=== PATIENT | female | born 1980 | race Caucasian/White ===

== ENCOUNTER 2017-09-09 14:01 | Emergency (ER) | payer OTHER ==
[~2017-09-09] VITALS: Ht 175.3 cm; Wt 180.1 kg
[~2017-09-09 14:01] MED LIST: GLIP1TAB85 PO; LEVO200T PO; LEVO25TA PO; LORA-339 PO; QUET5TAB PO; SERT1TAB68 PO; WARF5TAB90 PO; WARF7.5T PO
[2017-09-09 14:03] VITALS: TEMP 36.7; Ht 175.3 cm; Wt 180.1 kg
[2017-09-09] MEDS ORDERED: BUPRTAB51 PO (14:20)
[2017-09-09] MEDS ORDERED: LEVO100T7 PO (14:20)
[2017-09-09] MEDS ORDERED: TOPI100T20 PO (14:20)
[2017-09-09] MEDS ORDERED: CEFD300C2 PO (14:26)
--- NOTE | 2017-09-09 14:38 | EMERGENCY ROOM VISIT NOTE ---
History First contact with patient: 14:11 Chief Complaint: EAR PAIN Stated Complaint: EAR INFECTION SINCE JUNE, TREATED TWICE History of Present Illness The patient is a 37 year old female who presents to the Emergency Room with complaints of a recurrent right ear infection. The patient reports that she initially developed difficulty hearing in the right ear. She was seen by her PCP, and was told that she had an ear infection. She was treated with antibiotic eardrops. This seemed to improve her symptoms until one month later when she started to develop significant sinus congestion and right ear pain. She was then treated with Augmentin antibiotics. She again went through a period of improvement before her pain started to worsen again. She now complains of pain for the past 5 days. She denies any recurrent sinus congestion. She now reports the pain is also going into the throat. She rates her discomfort a 7 out of 10. She was unable to contact her family doctor's office, and came to the emergency department for further evaluation. Review of Systems 10 system review was performed and was negative except for pertinent positives and negatives as indicated in history of present illness Past Medical/Surgical History Medical Problems: (1) Asthma (2) Asthma, Unspecified (3) Diabetes (4) Dyspnea (5) Hypothyroidism Nos (6) Sprain of knee (7) Sprain of knee (8) Swelling (9) Swelling (10) Thyroid function test abnormal Surgical Problems: (1) H/O dilation and curettage (2) Hx of tonsillectomy Family History Diabetes mellitus Social History Smoking Status: Current Every Day Smoker Alcohol Use: none Drug Use: none Marital Status: single Housing Status: lives with family Occupation Status: unemployed Current/Historical Medications Scheduled Bupropion (Wellbutrin-Xl), 300 MG PO DAILY Cefdinir (Omnicef), 300 MG PO Q12H Glipizide Xl (Glucotrol Xl), 10 MG PO BID Levothyroxine Sodium (Synthroid), 400 MCG PO QPM Levothyroxine Sodium (Levothyroxine Sodium), 100 MCG PO DAILY Quetiapine Fumarate (Seroquel), 100 MG PO QPM Sertraline Hcl (Zoloft), 150 MG PO DAILY Topiramate (Topamax), 100 MG PO BID Physical Exam Vital Signs Date Time Temp Pulse Resp B/P (MAP) Pulse Ox O2 Delivery O2 Flow Rate FiO2 2/13/18 14:03 36.7 96 21 133/83 97 Room Air Physical Exam CONSTITUTIONAL: Healthy and well nourished. Alert and oriented X 3 with positive affect. HEENT: Normocephalic, atraumatic. Pupils equal, round and reactive. No facial edema noted. Examination of the left ear shows a bulging TM without erythema, air-fluid levels or effusion. Examination of the right ear shows notable TM scarring and overriding erythema. Light reflex is absent. Bony that are surveilled a visible. No TM perforation or external auditory canal erythema/edema. NECK: Full active range of motion without discomfort. RESPIRATORY: Clear to auscultation bilaterally with no wheezing, crackles, rhonchi or stridor. INTEGUMENTARY: No rash or other significant dermatologic conditions noted. NEUROLOGIC: No focal neurologic deficits noted. Medical Decision & Procedures ED Course Patient history and physical exam were performed. Nurse's notes were reviewed. Vital signs were reviewed and were normal. Examination is consistent with a recurrent otitis media. The patient will be treated with Omnicef 300 mg twice a day 10 days. The patient was encouraged to alternate ibuprofen and Tylenol as needed for pain. I did encourage her to have her family doctor refer her to ENT for further reevaluation and management of her recurrent otitis media. The patient was happy with plan of care, voiced understanding of all discharge instructions, and rated her overall discomfort a 6 out of 10 at the time of discharge. She refused any analgesics while in the emergency department. Medical Decision Medication Reconcilliation Current Medication List: was personally reviewed by ms Blood Pressure Screening Patient's blood pressure: Normal blood pressure Impression Primary Impression: Recurrent otitis media of right ear Departure Information Dispostion Home / Self-Care Prescriptions Cefdinir (OMNICEF) 300 Mg Cap 300 MG PO Q12H for 10 Days, #20 CAP Prov: Hakeem Lord PA 09/09/17 Referrals No Doctor, Assigned Forms HOME CARE DOCUMENTATION FORM, IMPORTANT VISIT INFORMATION Patient Instructions My [facility] Additional Instructions Take Omnicef as prescribed. Ibuprofen 800 mg and/or Tylenol 1000 mg every 8 hours. You may also alternate these medications for more effective pain relief: Ibuprofen --4 HRS--> Tylenol --4 HRS--> ibuprofen --4 HRS--> Tylenol .... Have your family doctor refer you to an ENT physician for further reevaluation.
[2017-09-09 14:40] VITALS: BP 125/70; PULSE 82; O2SAT 98
== END 2017-09-09 14:41 | disposition home or self-care (01) ==
LOC: C.EDB 14:03 → C.EDD 14:41
DX: H66.91 Otitis media, unspecified, right ear (principal); J45.909 Unspecified asthma, uncomplicated; E11.9 Type 2 diabetes mellitus without complications; E03.9 Hypothyroidism, unspecified; Z83.3 Family history of diabetes mellitus; F17.210 Nicotine dependence, cigarettes, uncomplicated; Z79.899 Other long term (current) drug therapy

== ENCOUNTER 2021-10-15 22:26 | Observation (INO) ==
[2021-10-15] MEDS ORDERED: SODIUM CHLORIDE 0.9% 1000ML 1,000 ML IV STA (23:17)
[2021-10-15] MEDS ORDERED: DROPERIDOL 5 MG/2 ML VIAL IV STA (23:17)
[2021-10-15] MEDS ORDERED: FAMOTIDINE 20MG IV PUSH 20 MG/5 ML SYR IV STA (23:17)
--- NOTE | 2021-10-15 23:25 | Emergency Department Note ---
History of Present Illness General Chief complaint: Vomiting Stated complaint: vomiting, Time Seen by Provider: 10/15/21 23:02 History of Present Illness Maximum Pain Intensity: 10 This 41-year-old presents to the ER complaining of nausea vomiting and upper abdominal pain Location: Upper abdomen Quality: Nauseated Severity: Moderate Duration: Today Timing: Today Context: Patient was concerned and came in Modifying factors: better with nothing; worse with activity Patient has had her gallbladder removed. No history pancreatitis. No alcohol use. She has a medical marijuana card. No history of similar symptoms in the past. Patient denies chest pain, dyspnea, fevers, flulike illness. Home Medications Medication Instructions Recorded Confirmed Type aripiprazole 2 mg tablet 2 mg PO DAILY 10/15/21 10/15/21 History duloxetine 60 mg capsule,delayed 60 mg PO BID 10/15/21 10/15/21 History release hydroxyzine pamoate 25 mg capsule 25 - 50 mg PO HS PRN 10/15/21 10/15/21 History (Vistaril) ibuprofen 200 mg tablet 400 mg PO DIRECTED PRN 10/15/21 10/15/21 History insulin lispro 100 unit/mL 0 unit CONTINUOUS SUBCUTANEOUS 10/15/21 10/15/21 History subcutaneous solution INFUSION CONTINOUS MDD 130 UNITS/24 HOURS levothyroxine 175 mcg tablet 175 mcg PO DAILY 10/15/21 10/15/21 History levothyroxine 200 mcg tablet 200 mcg PO DAILY 10/15/21 10/15/21 History lorazepam 0.5 mg tablet 0.5 mg PO TID PRN 10/15/21 10/15/21 History lovastatin 10 mg tablet 10 mg PO HS 10/15/21 10/15/21 History metformin 500 mg tablet,extended 1,000 mg PO BID 10/15/21 10/15/21 History release 24 hr pantoprazole 20 mg tablet,delayed 20 mg PO TID 10/15/21 10/15/21 History release (Protonix) Allergies Allergy/AdvReac Type Severity Reaction Status Date / Time citalopram Allergy Intermediate HIVES Verified 10/15/21 22:53 Past Med/Surg History Medical History (Updated 10/16/21 @ 02:56 by Margie Mackenzie DO) Diabetes History of DVT (deep vein thrombosis) CASTILLO (nonalcoholic steatohepatitis) Surgical History Hx of cholecystectomy Social History Smoking Status: Current every day smoker Tobacco Type: Cigarettes Preferred Language: Danish Feels Safe at Home: Yes Review of Systems A total of 10 systems reviewed and were otherwise negative Physical Exam Vital Signs Vital Signs - 24 hr 10/15/21 22:28 10/15/21 23:27 10/16/21 01:26 Temperature 35.9 C L 37 C Temperature Source Temporal Artery Scan Oral Pulse Rate 101 H 82 Pulse Rate [Finger] 81 Respiratory Rate 20 22 22 Respiratory Effort / Characteristics Non-Labored Spontaneous Respiratory Depth Normal Blood Pressure 172/83 H Blood Pressure [Right Arm] 172/89 H Blood Pressure Mean 112 Blood Pressure Mean [Right Arm] 116 Blood Pressure Position Sitting Pulse Oximetry 96 98 96 Oxygen Delivery Method Room Air Room Air Room Air Sepsis Recent Fever Within 48 Hours No Sepsis New/Unexplained Change in Mental Status No Sepsis Action Taken by Nursing No Action Required 10/16/21 02:58 Temperature 38 C H Temperature Source Oral Pulse Rate Pulse Rate [Finger] 82 Respiratory Rate 18 Respiratory Effort / Characteristics Respiratory Depth Blood Pressure Blood Pressure [Right Arm] Blood Pressure Mean Blood Pressure Mean [Right Arm] Blood Pressure Position Pulse Oximetry 95 Oxygen Delivery Method Room Air Sepsis Recent Fever Within 48 Hours Sepsis New/Unexplained Change in Mental Status Sepsis Action Taken by Nursing VITALS: Vitals are noted on the nurse's note and reviewed by myself. Vital sig ns reviewed. GENERAL: White female dry heaving in front of me, in no acute distress, nondiaphoretic, well-developed well-nourished. SKIN: The skin was without rashes, erythema, edema, or bruising. There is no tenting of the skin. Capillary reflex less than 2 seconds. HEAD: Normocephalic atraumatic. EARS: External auditory canals clear, EYES: Pupils equal round and reactive to light and accommodation. Conjunctivae without injection, sclerae without icterus. Extraocular movements intact. NOSE: Patent, turbinates without inflammation or discharge. MOUTH: Mucous membranes moist. Pharynx without erythema or exudate. Uvula midline. Airway patent. Tongue does not deviate. NECK: Supple without nuchal rigidity. No lymphadenopathy. No thyromegaly. Cervical spine is nontender. No JVD. HEART: Regular rate and rhythm LUNGS: Clear to auscultation bilaterally without wheezes, rales or rhonchi. No retractions or accessory muscle use. ABDOMEN: Positive bowel sounds x 4. Normal tympanic percussion. Soft, tender to palpation upper abdomen, without masses or organomegaly. Eid sign negative. No guarding or rebound tenderness. No CVA tenderness MUSCULOSKELETAL: No muscle atrophy, erythema, or edema noted. NEURO: Patient was alert and oriented to person place and time. Normal sensation to light and sharp touch. No focal neurological deficits. Course Administered Medications Discontinued Medications Droperidol (Droperidol 5 Mg/2 Ml Vial) 1.25 mg IV ONE STA Stop: 10/15/21 23:18 Last Admin: 10/15/21 23:34 Dose: 1.25 mg Documented by: [id number] Sodium Chloride (Nss 1000ml) 1,000 mls @ 999 mls/hr IV .Q1H1M STA Stop: 10/16/21 00:17 Last Infusion: 10/16/21 01:27 Dose: 0 mls/hr Documented by: [id number] Admin: 10/15/21 23:35 Dose: 999 mls/hr Documented by: [id number] Famotidine (Pepcid 20mg Iv Push) 20 mg in 5 mls @ 2.5 mls/min IV NOW STA Stop: 10/15/21 23:18 Last Admin: 10/15/21 23:35 Dose: 2.5 mls/min Documented by: [id number] Sodium Chloride (Nss 1000ml) 1,000 mls @ 999 mls/hr IV .Q1H1M ONE Stop: 10/16/21 01:02 Last Infusion: 10/16/21 02:37 Dose: 0 mls/hr Documented by: [id number] Admin: 10/16/21 01:21 Dose: 999 mls/hr Documented by: [id number] Ioversol (Optiray 320 125ml) 125 ml IV ONCE ONE Stop: 10/16/21 01:00 Last Admin: 10/16/21 01:00 Dose: 118 ml Documented by: [id number] Morphine Sulfate (Morphine Sulfate 4 Mg/Ml 1 Ml Carp\Vial) 4 mg IV NOW STA Stop: 10/16/21 01:16 Last Admin: 10/16/21 01:21 Dose: 4 mg Documented by: [id number] Medical Decision Making Medical Records Attestation: I reviewed the patient's medical records. Home Medications Current Medication List: was personally reviewed by me Laboratory Data Attestation: I reviewed the patient's lab results. Result diagrams: 10/15/21 23:29 10/16/21 01:08 Lab Results 10/15/21 10/15/21 10/15/21 Range/Units 23:29 23:29 23:29 WBC 11.77 H (4.8-10.8) K/uL RBC 5.44 H (4.2-5.4) M/uL Hgb 16.2 H (12.0-16.0) g/dL Hct 47.1 H (37-47) % MCV 86.6 (80-100) fL MCH 29.8 (25-34) pg MCHC 34.4 (32-36) g/dL RDW Std Deviation 48.2 H (36.4-46.3) fL RDW Coeff of Gabby 15.1 H (11.5-14.5) % Plt Count 125 L (130-400) K/uL MPV 11.2 H (7.4-10.4) fL Immature Gran % (Auto) 0.7 % Neut % (Auto) 86.8 % Lymph % (Auto) 9.0 % [place] % (Auto) 3.4 % Eos % (Auto) 0.0 % Baso % (Auto) 0.1 % Neut # (Auto) 10.22 H (1.4-6.5) K/uL Lymph # (Auto) 1.06 L (1.2-3.4) K/uL [place] # (Auto) 0.40 (0.11-0.59) K/uL Eos # (Auto) 0.00 (0-0.5) K/uL Baso # (Auto) 0.01 (0-0.2) K/uL Immature Gran # (Auto) 0.08 H (0.00-0.02) K/uL Sodium 134 L (136-145) mmol/L Potassium TNP Chloride 101 (98-107) mmol/L Carbon Dioxide 21 (21-32) mmol/L Anion Gap 12 H (3-11) BUN 20 (6-23) mg/dl Creatinine 0.59 L (0.6-1.2) mg/dl Est Cr Clr Drug Dosing Not Reportable Est GFR ( Amer) 132.9 ml/min Est GFR (Non-Af Amer) 114.6 ml/min BUN/Creatinine Ratio 33.9 H (10-20) Glucose 313 H* (70-99(Fasting)) mg/dl Calcium 9.2 (8.5-10.1) mg/dl Total Bilirubin 0.7 (0.2-1.0) mg/dl AST TNP ALT 18 (7-52) U/L Alkaline Phosphatase 168 H (34-104) U/L Troponin I < 0.03 (0-0.04) ng/ml Total Protein 8.1 (6.0-8.3) gm/dl Albumin 4.2 (3.4-5.0) gm/dl Globulin 3.9 (2.5-4.0) gm/dl Albumin/Globulin Ratio 1.1 (0.9-2) Lipase 40 (11-82) U/L HCG, Qual Negative (Negative) Urine Color Urine Appearance (Clear) Urine pH (4.5-7.5) Ur Specific [place] (1.000-1.030) Urine Protein (Negative) Urine Glucose (UA) (Negative) Urine Ketones (Negative) Urine Blood (Negative) Urine Nitrite (Negative) Urine Bilirubin (Negative) Urine Urobilinogen (Negative) Ur Leukocyte Esterase (Negative) Urine WBC (Auto) (0-5) /hpf Urine RBC (Auto) (0-4) /hpf U Hyaline Cast (Auto) (0-5) /lpf U Epithel Cells (Auto) (0-5) /lpf Urine Bacteria (Auto) (Negative) 10/16/21 10/16/21 Range/Units 01:08 01:29 WBC (4.8-10.8) K/uL RBC (4.2-5.4) M/uL Hgb (12.0-16.0) g/dL Hct (37-47) % MCV (80-100) fL MCH (25-34) pg MCHC (32-36) g/dL RDW Std Deviation (36.4-46.3) fL RDW Coeff of Gabby (11.5-14.5) % Plt Count (130-400) K/uL MPV (7.4-10.4) fL Immature Gran % (Auto) % Neut % (Auto) % Lymph % (Auto) % [place] % (Auto) % Eos % (Auto) % Baso % (Auto) % Neut # (Auto) (1.4-6.5) K/uL Lymph # (Auto) (1.2-3.4) K/uL [place] # (Auto) (0.11-0.59) K/uL Eos # (Auto) (0-0.5) K/uL Baso # (Auto) (0-0.2) K/uL Immature Gran # (Auto) (0.00-0.02) K/uL Sodium (136-145) mmol/L Potassium 4.1 Chloride (98-107) mmol/L Carbon Dioxide (21-32) mmol/L Anion Gap (3-11) BUN (6-23) mg/dl Creatinine (0.6-1.2) mg/dl Est Cr Clr Drug Dosing Est GFR ( Amer) ml/min Est GFR (Non-Af Amer) ml/min BUN/Creatinine Ratio (10-20) Glucose (70-99(Fasting)) mg/dl Calcium (8.5-10.1) mg/dl Total Bilirubin (0.2-1.0) mg/dl AST 16 ALT (7-52) U/L Alkaline Phosphatase (34-104) U/L Troponin I (0-0.04) ng/ml Total Protein (6.0-8.3) gm/dl Albumin (3.4-5.0) gm/dl Globulin (2.5-4.0) gm/dl Albumin/Globulin Ratio (0.9-2) Lipase (11-82) U/L HCG, Qual (Negative) Urine Color Yellow Urine Appearance Clear (Clear) Urine pH 6.0 (4.5-7.5) Ur Specific [place] > 1.045 H (1.000-1.030) Urine Protein 1+ H (Negative) Urine Glucose (UA) 3+ H (Negative) Urine Ketones 3+ H (Negative) Urine Blood Negative (Negative) Urine Nitrite Negative (Negative) Urine Bilirubin Negative (Negative) Urine Urobilinogen Negative (Negative) Ur Leukocyte Esterase Negative (Negative) Urine WBC (Auto) 1-5 (0-5) /hpf Urine RBC (Auto) 0-4 (0-4) /hpf U Hyaline Cast (Auto) 1-5 (0-5) /lpf U Epithel Cells (Auto) >30 H (0-5) /lpf Urine Bacteria (Auto) 1+ H (Negative) Imaging Data Attestation: I personally reviewed and interpreted this imaging study as follows: MDM Narrative Prior records/ancillary studies reviewed. Triage Nursing notes reviewed. Additional history obtained from the family. The patient's history was concerning for nausea, vomiting, and abdominal pain. Differential diagnosis: Etiologies such as gastroenteritis, food borne illness, infections, appendicitis, diverticulitis, inflammatory bowel disease, obstruction, GI bleed, biliary pathology, as well as others were entertained. Physical examination findings: As above. Abdominal examination revealed tender upper abdomen. Vital signs reviewed and revealed mildly tachycardic. ER treatment provided: IV hydration 1 L NSS. Droperidol, Pepcid On reassessment the patient felt better. Patient was tolerating p.o. intake. Diagnostics interpretation by me: EKG ordered for upper abdominal pain EKG: Normal sinus, sinus arrhythmia, no acute ST-T wave changes, rate of 80. Impression normal sinus rhythm interpreted by myself I think arrhythmia is unlikely. EKG shows normal sinus rhythm with no interval abnormalities such as QT prolongation or WPW. There are no findings to suggest Brugada syndrome. Cardiac monitoring in the emergency department reveals no tachycardic or bradycardic dysrhythmia. Hypertrophic cardiomyopathy was considered but there are no clear historical elements pointing toward this. EKG is not suggestive. The QRS voltage is not extremely large and there are no suggestive Q waves. The labs revealed mild leukocytosis Negative urine, negative hCG Hyperglycemia Imaging studies: [facility] Patient: SHIRLEY MEDINA (Female) : 82 Status: ER Date: 10/16/21 01:02 Room #: History: PAIN ACROSS UPPER ABD, PT STATES SHE HAS HAD GALLBLADDER REMOVED ABOUT 7 YRS AGO Slices: [id number] Priors: Tech: SandraRell osborn @ [phone] Exams: CT ABDOMEN & PELVIS With Contrast Contrast: IV Amt: 118 ML OPTIRAY 320 Accession Numbers: [id number] Referring Physician: REFERRED SELF Preliminary Findings Only See Final Report For Complete Findings CT ABDOMEN & PELVIS With Contrast: No free fluid or free air. No small bowel obstruction. No radiopaque kidney stone or hydronephrosis. Mildly nodular contour of the liver could reflect early cirrhosis. Mild splenomegaly. Nonspecific mildly enlarged lymph nodes in the portacaval region, celiac region, and retroperitoneum. 1.8 cm left adrenal gland nodule, likely an adenoma. Radiologist: Jose Angel Westfall MD Consultation: A consultation was placed with the hospitalist. The case was discussed and diagnostics were reviewed. The patient was evaluated in the ER for further treatment. This appears to be consistent with nausea and vomiting with dehydration and abdominal pain with poorly controlled diabetes. patient still felt quite nauseated. medicine was consulted. She will be evaluated for admission. By the evaluation outlined above emergent etiologies such as appendicitis, diverticulitis, obstruction, cardiac sources, mesenteric ischemia, aortic pathology, inflammatory bowel disease, renal colic, PUD, biliary pathology, UTI, as well as others were deemed relatively unlikely. The pt informed about the findings as listed above. All questions were answered and pleased with the treatment. The chart was completed utilizing [employer] Speech voice recognition software. Grammatical errors, random word insertions, pronoun errors, and incomplete sentences are an occassional consequence of this system due to software limitations, ambient noise, and hardware issues. Any formal questions or concerns about the content, text, or information contained within the body of this dictation should be directly addressed to the physician physician's assistant for clarification. Impression & Plan Nausea & vomiting, Acute dehydration, Abdominal pain in female patient, Diabetes mellitus with hyperglycemia Discharge Plan Visit Data Chief Complaint: Vomiting Stated Complaint: vomiting, ED Provider: Lisa Tinajero ED Midlevel Provider: Kayla Barragan Discharge Problem: Nausea & vomiting, Acute dehydration, Abdominal pain in female patient, Diabetes mellitus with hyperglycemia Patient Disposition: Admitted As Inpatient Condition: Good Forms Stand Alone Forms: My [employer] Prescriptions Prescriptions: No Action levothyroxine 175 mcg tablet 175 mcg PO DAILY RF: 0 lovastatin 10 mg tablet 10 mg PO HS RF: 0 pantoprazole [Protonix] 20 mg tablet,delayed release (DR/EC) 20 mg PO TID RF: 0 lorazepam 0.5 mg tablet 0.5 mg PO TID PRN (Reason: Anxiety) RF: 0 ibuprofen 200 mg Tablet 400 mg PO DIRECTED PRN (Reason: PAIN/FEVER) RF: 0 levothyroxine 200 mcg tablet 200 mcg PO DAILY RF: 0 insulin lispro 100 unit/mL solution 0 unit continuous subcutaneous infusion CONTINOUS MDD 130 UNITS/24 HOURS RF: 0 metformin 500 mg tablet extended release 24 hr 1,000 mg PO BID RF: 0 hydroxyzine pamoate [Vistaril] 25 mg capsule 25 - 50 mg PO HS PRN (Reason: Sleep) RF: 0 duloxetine 60 mg capsule,delayed release(DR/EC) 60 mg PO BID RF: 0 aripiprazole 2 mg tablet 2 mg PO DAILY RF: 0 Referrals Referrals: Nathen Stewart [Primary Care Provider] - Discharge Problem: Nausea & vomiting Qualifiers: Vomiting type: unspecified Qualified Code(s): R11.2 - Nausea with vomiting, unspecified
[2021-10-15 23:37] LABS: Basophils # (auto) 0.01 K/uL (0-0.2); Basophils % (auto) 0.1 %; Hematocrit (blood only) 47.1 % (37-47); Hemoglobin 16.2 g/dL (12.0-16.0); Immature Granulocytes # (auto) 0.08 K/uL (0.00-0.02); Immature Granulocytes % (auto) 0.7 %; Lymphocytes # (auto) 1.06 K/uL (1.2-3.4); Mean Corpuscular Hemoglobin 29.8 pg (25-34); Mean Corpuscular Hgb Conc 34.4 g/dL (32-36); Mean Corpuscular Volume 86.6 fL (80-100); Mean Platelet Volume 11.2 fL (7.4-10.4); Monocytes % (auto) 3.4 %; Neutrophils # (auto) 10.22 K/uL (1.4-6.5); Neutrophils % (auto) 86.8 %; Platelet Count 125 K/uL (130-400); RDW Coefficient of Variation 15.1 % (11.5-14.5); RDW Standard Deviation 48.2 fL (36.4-46.3); Red Blood Count 5.44 M/uL (4.2-5.4); White Blood Count 11.77 K/uL (4.8-10.8)
[2021-10-15 23:52] LABS: Pregnancy Test, Serum Negative (Negative)
[2021-10-16] LABS: Alanine Aminotransferase 18 U/L (7-52); Albumin Globulin Ratio 1.1 (0.9-2); Albumin Level 4.2 gm/dl (3.4-5.0); Alkaline Phosphatase 168 U/L (34-104); Anion Gap 12 (3-11); BUN Creatinine Ratio 33.9 (10-20); Bilirubin,Total 0.7 mg/dl (0.2-1.0); Blood Urea Nitrogen 20 mg/dl (6-23); Calcium 9.2 mg/dl (8.5-10.1); Carbon Dioxide 21 mmol/L (21-32); Chloride 101 mmol/L (98-107); Est GFR (African American) 132.9 ml/min; Est GFR (Non-African American) 114.6 ml/min; Globulin 3.9 gm/dl (2.5-4.0); Glucose 313 mg/dl (70-99(Fasting)); Lipase 40 U/L (11-82); Sodium 134 mmol/L (136-145); Total Protein 8.1 gm/dl (6.0-8.3); Troponin I < 0.03 ng/ml (0-0.04)
[2021-10-16] MEDS ORDERED: SODIUM CHLORIDE 0.9% 1000ML 1,000 ML IV ONE (00:02)
[2021-10-16] MEDS ORDERED: OPTIRAY 320 125ml IV ONE (00:59)
[2021-10-16] MEDS ORDERED: MoRPHine SULFATE 4 MG/ML 1 ML CARP\\VIAL IV STA (01:15)
[2021-10-16] MEDS ORDERED: GI COCKTAIL ED USE PO ONE (01:27)
[2021-10-16 01:38] LABS: Potassium 4.1 mmol/L (3.5-5.1)
[2021-10-16 01:39] LABS: Appearance Urine Clear (Clear); Bacteria Urine Automated 1+ (Negative); Bilirubin Urine Negative (Negative); Blood Urine Negative (Negative); Color Urine Yellow; Epithelial Cell Urine Auto >30 /lpf (0-5); Glucose Urine UA 3+ (Negative); Ketones Urine 3+ (Negative); Leukocyte Esterase Urine Negative (Negative); Nitrite Urine Negative (Negative); Protein Urine 1+ (Negative); RBC Urine Automated 0-4 /hpf (0-4); Specific Gravity Urine > 1.045 (1.000-1.030); Urobilinogen Urine Negative (Negative)
--- NOTE | 2021-10-16 02:48 | History & Physical Report ---
Date of Service October 16, 2021 Assessment & Plan (1) Nausea & vomiting: Plan: 41yo female presenting wtih 2 days of persistent nausea, vomiting, po intolerance. Patient unable to tolerate PO, unable to take pills. Ddx to include gastroparesis, cannabis hyperemesis, gastroenterities, GERD -Observation to medical -Pepcid TID -Reglan qAC and qHS -Small sips as tolerated - clear liquids (2) CASTILLO (nonalcoholic steatohepatitis): Plan: Compensated (3) Adrenal nodule: Plan: Adrenal incidentaloma. Unilateral, 1.8cm. Obesity and DM. Benign in appearance -Repeat imaging in 1 year to demonstrate stability (4) Lymphadenopathy: Plan: Noted on imaging, mild, does not appear pathological -Consider repeat imaging as outpatient (5) History of DVT (deep vein thrombosis): Plan: Noted. History of Present Illness Chief Complaint: nausea, vomiting, abdominal pain Primary Care Provider: Nathen Fernández is a 41yo female with history of DM, CASTILLO with cirrhosis presenting with two days of nausea, vomiting, abdominal pain and PO intolerance. Patient states that she develops severe nausea immediately following oral intake followed by vomiting 5-10 minutes later. She has anterior abdominal pain mostly in epigastric and LUQ region. She has tried taking hot showers, small sips of liquid to no avail. She has been unable to keep down her medications or tolerate even small sips of water without vomiting. She denies fever, chills, diarrhea or constipation. She has had severe nausea in the past that lasted almost a month before resolving on its own. She has an appointment with GI on 11/15/21 for a gastric emptying study for workup for possible gastroparesis. ER Course: Maalox, Droperidone, Pepcid, Morphine, NSS Allergies Allergy/AdvReac Type Severity Reaction Status Date / Time citalopram Allergy Intermediate HIVES Verified 10/15/21 22:53 Home Medications Medication Instructions Recorded Confirmed Type aripiprazole 2 mg tablet 2 mg PO DAILY 10/15/21 10/15/21 History duloxetine 60 mg capsule,delayed 60 mg PO BID 10/15/21 10/15/21 History release hydroxyzine pamoate 25 mg capsule 25 - 50 mg PO HS PRN 10/15/21 10/15/21 History (Vistaril) ibuprofen 200 mg tablet 400 mg PO DIRECTED PRN 10/15/21 10/15/21 History insulin lispro 100 unit/mL 0 unit CONTINUOUS SUBCUTANEOUS 10/15/21 10/15/21 History subcutaneous solution INFUSION CONTINOUS MDD 130 UNITS/24 HOURS levothyroxine 175 mcg tablet 175 mcg PO DAILY 10/15/21 10/15/21 History levothyroxine 200 mcg tablet 200 mcg PO DAILY 10/15/21 10/15/21 History lorazepam 0.5 mg tablet 0.5 mg PO TID PRN 10/15/21 10/15/21 History lovastatin 10 mg tablet 10 mg PO HS 10/15/21 10/15/21 History metformin 500 mg tablet,extended 1,000 mg PO BID 10/15/21 10/15/21 History release 24 hr pantoprazole 20 mg tablet,delayed 20 mg PO TID 10/15/21 10/15/21 History release (Protonix) Past Med/Surg History Medical History (Updated 10/16/21 @ 02:56 by Margie Mackenzie, DO) Diabetes History of DVT (deep vein thrombosis) CASTILLO (nonalcoholic steatohepatitis) Surgical History Hx of cholecystectomy Social History Smoking Status: Current every day smoker Tobacco Type: Cigarettes Preferred Language: Thai Feels Safe at Home: Yes Review of Systems Review of Systems: All systems reviewed & are unremarkable except as noted in HPI & below Physical Exam Physical Exam: General: patient resting comfortably, NAD, non-toxic in appearance, AA&O x 4 Skin: warm, dry, intact, no rashes or lesions HEENT: NC/AT, PERRL, EOMI, anicteric sclera, conjunctiva without injection, external ear normal to inspection and nontender, nares patent, moist mucus membranes, dentition intact, no oropharyngeal lesions, neck supple, trachea midline, no LAD, no thyromegaly, no JVD Heart: +S1/S2, regular, no m/r/g Lungs: equal air entry bilaterally, no rales/rhonchi/wheezes Abd: +BS, soft, tender in epigastric region without rebound or guarding, tender in LUQ Ext: warm, 2+ pulses in UE/LE bilaterally, no clubbing/cyanosis or edema Neuro: nonfocal, patient AA&O x 4, speech intact, no facial droop, moving all extremities on command with equal strength 5/5 Results & Data Results & Data ([facility]) Vital Signs (Past 12 Hours) Vital Signs Temp Pulse Pulse Resp BP BP Pulse Ox 10/16/21 01:26 37 C 81 22 172/89 H 96 10/15/21 23:27 82 22 98 10/15/21 22:28 35.9 C L 101 H 20 172/83 H 96 Laboratory Results Laboratory Results WBC 11.77 K/uL (4.8-10.8) H 10/15/21 23:29 RBC 5.44 M/uL (4.2-5.4) H 10/15/21 23:29 Hgb 16.2 g/dL (12.0-16.0) H 10/15/21 23:29 Hct 47.1 % (37-47) H 10/15/21 23: MCV 86.6 fL (80-100) 10/15/21 23: MCH 29.8 pg (25-34) 10/15/21 23: MCHC 34.4 g/dL (32-36) 10/15/21 23:29 RDW Std Deviation 48.2 fL (36.4-46.3) H 10/15/21 23:29 RDW Coeff of Gabby 15.1 % (11.5-14.5) H 10/15/21 23:29 Plt Count 125 K/uL (130-400) L 10/15/21 23:29 MPV 11.2 fL (7.4-10.4) H 10/15/21 23:29 Immature Gran % (Auto) 0.7 % 10/15/21 23: Neut % (Auto) 86.8 % 10/15/21 23: Lymph % (Auto) 9.0 % 10/15/21 23: Jones % (Auto) 3.4 % 10/15/21 23: Eos % (Auto) 0.0 % 10/15/21 23: Baso % (Auto) 0.1 % 10/15/21 23: Neut # (Auto) 10.22 K/uL (1.4-6.5) H 10/15/21 23:29 Lymph # (Auto) 1.06 K/uL (1.2-3.4) L 10/15/21 23:29 Jones # (Auto) 0.40 K/uL (0.11-0.59) 10/15/21 23: Eos # (Auto) 0.00 K/uL (0-0.5) 10/15/21 23: Baso # (Auto) 0.01 K/uL (0-0.2) 10/15/21 23: Immature Gran # (Auto) 0.08 K/uL (0.00-0.02) H 10/15/21 23:29 Sodium 134 mmol/L (136-145) L 10/15/21 23: Potassium 4.1 mmol/L (3.5-5.1) 10/16/21 01:08 Chloride 101 mmol/L (98-107) 10/15/21: Carbon Dioxide 21 mmol/L (21-32) 10/15/21 23: Anion Gap 12 (3-11) H 10/15/21 23: BUN 20 mg/dl (6-23) 10/15/21 23: Creatinine 0.59 mg/dl (0.6-1.2) L 10/15/21 23: Est Cr Clr Drug Dosing Not Reportable 10/15/21 23: Est GFR ( Amer) 132.9 ml/min 10/15/21: Est GFR (Non-Af Amer) 114.6 ml/min 10/15/21 23: BUN/Creatinine Ratio 33.9 (10-20) H 10/15/21 23: Glucose 313 mg/dl (70-99(Fasting)) H* 10/15/21 23: Calcium 9.2 mg/dl (8.5-10.1) 10/15/21 23: Total Bilirubin 0.7 mg/dl (0.2-1.0) 10/15/21 23: AST 16 U/L (13-39) 10/16/21 01:08 ALT 18 U/L (7-52) 10/15/21 23: Alkaline Phosphatase 168 U/L (34-104) H 10/15/21 23: Troponin I < 0.03 ng/ml (0-0.04) 10/15/21 23: Total Protein 8.1 gm/dl (6.0-8.3) 10/15/21 23: Albumin 4.2 gm/dl (3.4-5.0) 10/15/21 23: Globulin 3.9 gm/dl (2.5-4.0) 10/15/21 23: Albumin/Globulin Ratio 1.1 (0.9-2) 10/15/21 23: Lipase 40 U/L (11-82) 10/15/21 23: HCG, Qual Negative (Negative) 10/15/21 23: Urine Color Yellow 10/16/21 01: Urine Appearance Clear (Clear) 10/16/21: Urine pH 6.0 (4.5-7.5) 10/16/21 01: Ur Specific Monon > 1.045 (1.000-1.030) H 10/16/21 01: Urine Protein 1+ (Negative) H 10/16/21 01: Urine Glucose (UA) 3+ (Negative) H 10/16/21 01: Urine Ketones 3+ (Negative) H 10/16/21 01: Urine Blood Negative (Negative) 10/16/21 01: Urine Nitrite Negative (Negative) 10/16/21 01: Urine Bilirubin Negative (Negative) 10/16/21 01: Urine Urobilinogen Negative (Negative) 10/16/21 01:29 Ur Leukocyte Esterase Negative (Negative) 10/16/21 01:29 Urine WBC (Auto) 1-5 /hpf (0-5) 10/16/21 01:29 Urine RBC (Auto) 0-4 /hpf (0-4) 10/16/21 01: U Hyaline Cast (Auto) 1-5 /lpf (0-5) 10/16/21 01: U Epithel Cells (Auto) >30 /lpf (0-5) H 10/16/21 01:29 Urine Bacteria (Auto) 1+ (Negative) H 10/16/21 01:[address] Abdomen - Per STAT rad - no free fluid or free air. No small bowel obstruction. No radiopaque kidney stone or hydronephrosis. Mildly nodular contour of the liver could reflect early cirrhosis. Mild splenomegaly. Nonspecific mildly enlarged lymph nodes in the portacaval region, celiac region and retroperitoneum. 1.8cm left adrenal gland nodule, likely an adenoma. Code Status & VTE Plan VTE Prophylaxis Plan VTE Prophylaxis will be ordered: No PG Care Time/CCT Total # of Minutes Spent Total Time Spent with Patient: Total time spent is greater than 50% in coordination of care (as documented) at patient's floor/unit and/or counseling patient: Coding Level of Care Code INT OBSERVATION CARE 70M LVL 3 Diagnoses History of DVT (deep vein thrombosis) Z86.718 CASTILLO (nonalcoholic steatohepatitis) K75.81 Nausea & vomiting R11.2 Vomiting type: unspecified Adrenal nodule E27.8 Lymphadenopathy R59.1 (1) Nausea & vomiting Vomiting type: unspecified Qualified Code(s): R11.2 - Nausea with vomiting, unspecified
[2021-10-16] MEDS ORDERED: ACETAMINOPHEN 1,000 MG/100 ML VIAL IV STA (03:02)
[2021-10-16] MEDS ORDERED: GLUCOSE 40% GEL 15 GM TUBE PO PRN (04:23)
[2021-10-16] MEDS ORDERED: LORazepam 0.5 MG TAB PO PRN (04:23)
[2021-10-16] MEDS ORDERED: LACTATED RINGER'S 1,000 ML IV SCH (04:23)
[2021-10-16] MEDS ORDERED: GLUCAGON FOR INJ 1 MG VIAL SQ PRN (04:23)
[2021-10-16] MEDS ORDERED: CARBOHYDRATES FOR HYPOGLYCEMIA PO PRN (04:23)
[2021-10-16] MEDS ORDERED: DEXTROSE 50% 50 ML SYRINGE IV PRN (04:23)
[2021-10-16] MEDS ORDERED: hydrOXYzine HCl 25 MG TAB PO PRN (04:23)
[2021-10-16] MEDS ORDERED: GLUCOSE 10 TABS/TUBE PO PRN (04:23)
[2021-10-16] MEDS ORDERED: INSULIN HUMAN LISPRO (humaLOG) 100 UNITS/ML VIAL SC PRN (04:45)
[2021-10-16] MEDS: LEVOTHYROXINE SODIUM 175 MCG TABLET PO SCH (06:12)
[2021-10-16] MEDS: LEVOTHYROXINE SODIUM 200 MCG TABLET PO SCH (06:12)
[2021-10-16 06:47] LABS: Magnesium 1.9 mg/dl (1.7-2.4); Phosphorus 2.6 mg/dl (2.5-4.9)
[2021-10-16] MEDS ORDERED: METOCLOPRAMIDE HCL 5 MG TABLET PO SCH (07:30)
[2021-10-16] MEDS: FAMOTIDINE 20 MG in SYRINGE 3 ML IV SCH ×2 (07:51→20:22)
--- NOTE | 2021-10-16 08:06 | CT Scan Report ---
CT SCAN OF THE ABDOMEN AND PELVIS WITH IV CONTRAST CLINICAL HISTORY: Upper abdominal pain. COMPARISON STUDY: Chest CT dated 04/18/2014. TECHNIQUE: Following the IV administration of 118 cc of Optiray 320, CT scan of the abdomen and pelv is is performed from the lung bases to the proximal femora. Images are reviewed in the axial, sagitta l, and coronal planes. IV contrast was administered without complication. A dose lowering technique w as utilized adhering to the principles of ALARA. The examination is degraded by large body habitus, a nd by streak artifact from the body wall abutting the CT gantry. CT DOSE: 2261.05 mGy.cm FINDINGS: Lung bases: The heart is normal in size and without pericardial effusion. The lung bases are clear. T here is a small hiatal hernia. Liver: The contrast-enhanced liver is enlarged, measuring 27.1 cm in length. The liver is cirrhotic i n morphology, with nodularity of the hepatic surface contour hepatic attenuation is diffusely diminis hed indicating superimposed steatosis. There is no intrahepatic biliary ductal dilatation. The hepat ic veins and portal veins are patent. Gallbladder: Surgically absent noting clips in the gallbladder fossa. Spleen: The spleen is markedly enlarged measuring 19.7 cm in length. Pancreas: Mildly atrophic and grossly unremarkable. Adrenal glands: Nodularity of the left adrenal gland is similar to [address] This likely represe nt adenomas but cannot be definitively characterized due to the presence of IV contrast. The right ad renal gland is normal in appearance. Kidneys: The contrast enhanced kidneys are normal in size and without hydronephrosis. The kidneys enh ance symmetrically. Abdominal vasculature: The abdominal aorta is normal in course and caliber. Bowel: There is no bowel obstruction. The appendix is not visualized. Peritoneum: There is no intraperitoneal free air or abdominal ascites. Lymphadenopathy: There are mildly enlarged retroperitoneal and iliac chain lymph nodes which measure up to 12 mm in short axis. Mildly enlarged upper abdominal nodes are likely related to chronic liver disease. Pelvic viscera: The bladder, uterus, and adnexa are normal as visualized. Ovarian follicles are noted . There is trace free fluid in the cul-de-sac. Skeletal structures: No lytic or blastic lesions are seen. IMPRESSION: 1. There are no acute infectious or inflammatory findings in the abdomen or pelvis. 2. The liver is enlarged, steatotic, and cirrhotic in morphology. 3. Marked splenomegaly. 4. Mildly enlarged retroperitoneal and iliac chain lymph nodes are nonspecific and may be reactive. 5. Trace free fluid in cul-de-sac is nonspecific and likely within physiologic limits. 6. Additional findings as above. ACT 112: Negative or not required by law. Electronically signed by: Kenn Diez M.D. 10/16/2021 8:03 AM
[2021-10-16] MEDS ORDERED: PHARMACY GLYCEMIC MGMT CONSULT PRN (08:14)
[2021-10-16] MEDS ORDERED: INSULIN ASPART 100 UNITS/ML 3 ML PEN SC SCH (09:00)
[2021-10-16] MEDS ORDERED: METOCLOPRAMIDE HCL INJ 5 MG/ML 2 ML VIAL IV SCH (09:00)
[2021-10-16] MEDS ORDERED: INSULIN GLARGINE SOLOSTAR 100 UNITS/ML 3 ML PEN SC ONE (09:00)
[2021-10-16] MEDS: DULoxetine HCL 60 MG CAP PO SCH ×2 (09:11→20:22)
[2021-10-16] MEDS: ARIPIprazole 1 MG/ML ORAL SOLN 150 ML BTL PO SCH (09:11)
[2021-10-16] MEDS: INSULIN ASPART PER UNIT SC SCH ×4 (09:15→21:15)
[2021-10-16 09:36] LABS: iSTAT Arterial Blood Gas pH 7.42 (7.35-7.45); iSTAT Hematocrit 47 % (37-47); iSTAT Potassium 4.3 mmol/L (3.3-5.0); iSTAT Sodium 135 mmol/L (135-144)
[2021-10-16 09:37] LABS: iSTAT Arterial Blood Gas HCO3 22 meg/L (19-24); iSTAT Arterial Blood Gas pCO2 35 mmHg (35-46); iSTAT Arterial Blood Gas pO2 66 mmHg (80-95); iSTAT Carbon Dioxide 23 mmol/L (24-31)
--- NOTE | 2021-10-16 10:49 | Electrocardiogram Report ---
Test Reason : Blood Pressure : / mmHG Vent. Rate : 080 BPM Atrial Rate : 094 BPM P-R Int : 130 ms QRS Dur : 088 ms QT Int : 414 ms P-R-T Axes : 055 034 063 degrees QTc Int : 477 ms Wandering atrial pacemaker Otherwise normal ECG When compared with ECG of 24-AUG-2014 11:33, No significant change was found Confirmed by Taj Zuleta ([id number]) on 10/16/2021 10:49:20 AM Referred By: REFERRED SELF Confirmed By:Harvinder Zuleta
--- NOTE | 2021-10-16 13:57 | Discharge Summary ---
Date of Service October 17, 2021 Admission HPI Per Admitting Provider Ade Fernández is a 41yo female with history of DM, CASTILLO with cirrhosis presenting with two days of nausea, vomiting, abdominal pain and PO intolerance. Patient states that she develops severe nausea immediately following oral intake followed by vomiting 5-10 minutes later. She has anterior abdominal pain mostly in epigastric and LUQ region. She has tried taking hot showers, small sips of liquid to no avail. She has been unable to keep down her medications or tolerate even small sips of water without vomiting. She denies fever, chills, diarrhea or constipation. She has had severe nausea in the past that lasted almost a month before resolving on its own. She has an appointment with GI on 11/15/21 for a gastric emptying study for workup for possible gastroparesis. ER Course: Maalox, Droperidone, Pepcid, Morphine, NSS Principal Diagnosis Intractable nausea/vomiting--possibly related to cannabis use v. gastroparesis Discharge Exam GENERAL: 41 yo morbidly obese WF. Pleasant, cooperative, NAD. LUNGS: Clear to auscultation bilaterally. No accessory muscle use. No W/R/R. CARDIOVASCULAR: Regular rate and rhythm. No M/G/R. No JVD. ABDOMEN: Soft, non-tender and non-distended. BS normal x 4 quad. EXTREMITIES: No edema. Non-tender. Peripheral pulses +2/4. NEUROLOGIC: A&O x3. PSYCHIATRIC: Cooperative. Appropriate mood and affect. SKIN: Warm, dry, intact. No rashes or lesions. Discharge Data Allergies Allergy/AdvReac Type Severity Reaction Status Date / Time citalopram Allergy Intermediate HIVES Verified 10/15/21 22:53 Consultations 10/16/21 01:51 ED Decision to Admit Stat Ordered Studies Abdomen/Pelvis CT 10/15/21 23:17 CT SCAN OF THE ABDOMEN AND PELVIS WITH IV CONTRAST CLINICAL HISTORY: Upper abdominal pain. COMPARISON STUDY: Chest CT dated 04/18/2014. TECHNIQUE: Following the IV administration of 118 cc of Optiray 320, CT scan of the abdomen and pelvis is performed from the lung bases to the proximal femora. Images are reviewed in the axial, sagittal, and coronal planes. IV contrast was administered without complication. A dose lowering technique was utilized adhering to the principles of ALARA. The examination is degraded by large body habitus, and by streak artifact from the body wall abutting the CT gantry. CT DOSE: 2261.05 mGy.cm FINDINGS: Lung bases: The heart is normal in size and without pericardial effusion. The lung bases are clear. There is a small hiatal hernia. Liver: The contrast-enhanced liver is enlarged, measuring 27.1 cm in length. The liver is cirrhotic in morphology, with nodularity of the hepatic surface contour hepatic attenuation is diffusely diminished indicating superimposed steatosis. There is no intrahepatic biliary ductal dilatation. The hepatic veins and portal veins are patent. Gallbladder: Surgically absent noting clips in the gallbladder fossa. Spleen: The spleen is markedly enlarged measuring 19.7 cm in length. Pancreas: Mildly atrophic and grossly unremarkable. Adrenal glands: Nodularity of the left adrenal gland is similar to [address] This likely represent adenomas but cannot be definitively characterized due to the presence of IV contrast. The right adrenal gland is normal in appearance. Kidneys: The contrast enhanced kidneys are normal in size and without hydronephrosis. The kidneys enhance symmetrically. Abdominal vasculature: The abdominal aorta is normal in course and caliber. Bowel: There is no bowel obstruction. The appendix is not visualized. Peritoneum: There is no intraperitoneal free air or abdominal ascites. Lymphadenopathy: There are mildly enlarged retroperitoneal and iliac chain lymph nodes which measure up to 12 mm in short axis. Mildly enlarged upper abdominal nodes are likely related to chronic liver disease. Pelvic viscera: The bladder, uterus, and adnexa are normal as visualized. Ovarian follicles are noted. There is trace free fluid in the cul-de-sac. Skeletal structures: No lytic or blastic lesions are seen. IMPRESSION: 1. There are no acute infectious or inflammatory findings in the abdomen or pelvis. 2. The liver is enlarged, steatotic, and cirrhotic in morphology. 3. Marked splenomegaly. 4. Mildly enlarged retroperitoneal and iliac chain lymph nodes are nonspecific and may be reactive. 5. Trace free fluid in cul-de-sac is nonspecific and likely within physiologic limits. 6. Additional findings as above. ACT 112: Negative or not required by law. Electronically signed by: Kenn Diez M.D. 10/16/2021 8:03 AM Hospital Course (1) Nausea & vomitinyo female presenting wtih 2 days of persistent nausea, vomiting, po intolerance. Patient unable to tolerate PO, unable to take pills. Ddx to include gastroparesis, cannabis hyperemesis, gastroenteritis, GERD -Placed in observation to med/surg -Pepcid TID ordered in addition to Reglan qAC and qHS -Small sips as tolerated - clear liquids (diabetic) -Would advance back to regular diabetic diet as tolerated -This morning, pt vomited prior to PO Reglan and it was requested to be changed to IV which was done but pt has not needed it -Was able to tolerate clear liquids for lunch -Highly suspicious that her symptoms are related to cannabis, recommend that she stops using -She has an upcoming appt for [facility] next month to r/o gastroparesis -IV Reglan didn't seem to be providing much benefit, was medicated with a dose of IV Compazine 10mg x1 yesterday afternoon and reported marked improvement in symptoms -Has requested rx for Compazine, told she will have discontinue Phenergan and can use Compazine in place of that -Diet advanced this AM to ADA regular/solid and she tolerated eating small amount -Will plan for d/c to home today with 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 Unilateral, 1.8cm. Obesity and DM. Benign in appearance -Repeat imaging in 1 year to demonstrate stability (5) Lymphadenopathy: Noted on imaging, mild, does not appear pathological -Consider repeat imaging as outpatient (6) History of DVT (deep vein thrombosis): -Noted. Not on any chronic anticoagulation and no s/sx concerning for acute DVT (7) Thrombocytopenia: -Drop in platelets noted from 125 to 90 this morning -Was started on Pepcid which she does not take at home which can cause this, has been d/c'd -Also pt with CASTILLO, so could be a contributing factor, other than yesterday no previous labs to compare trend -Would recommend pcp follow up At this time, pt is medically and hemodynamically stable for discharge home. Advise pcp follow up within 1 week of discharge. Also recommend keeping all upcoming scheduled appointments and tests. Other than changing her Phenergan to Compazine, no changes to be made to her outpatient medication regimen. Above plan of care has been d/w Dr. Noriega who is in agreement with the aforementioned. Total Time Total Time Spent Total Time Spent (In Minutes): <30 minutes Discharge Plan Discharge Items Patient Disposition: Home - Self-Care Reason For Visit: INTRACTABLE NAUSEA Discharge Diagnosis: nausea, likely due to cannibis use Condition on Discharge: Good Activity: Resume your previous activity Non-emergency contact: Primary Care Provider Call non-emergency contact if: you have any medication questions and your symptoms worsen Follow-up/Referrals: Nathen Stewart [Primary Care Provider] - Diet: Carb Consistent or DM2 Addtl Attending Provider Instructions: Take all medications as directed on medication reconciliation. I would recommend stopping the marijuana/cannabis as it very likely could be contributing to your nausea and vomiting. Keep all upcoming scheduled appointments and tests with your primary care doctors and specialists. Would recommend that you follow up with your family healthcare provider within 1 week of discharge. You have requested a prescription for Compazine which has been sent to your pharmacy. You will need to STOP taking the Phenergan--do NOT combine these two medications. Take as directed. If you feel that you are having trouble tolerating oral intake, this medication does come in a suppository form and could be called into your pharmacy. You will need to contact your PCP for a new script if needed. Pending Studies at Discharge: No Stand-Alone Forms: [facility], Smoking Cessation Medications and DC Order Prescriptions: New prochlorperazine maleate [Compazine] 10 mg tablet 10 mg PO Q8H PRN (Reason: nausea and vomiting) Qty: 20 RF: 0 Continued levothyroxine 175 mcg tablet 175 mcg PO DAILY RF: 0 lovastatin 10 mg tablet 10 mg PO HS RF: 0 pantoprazole [Protonix] 20 mg tablet,delayed release (DR/EC) 20 mg PO TID RF: 0 lorazepam 0.5 mg tablet 0.5 mg PO TID PRN (Reason: Anxiety) RF: 0 ibuprofen 200 mg Tablet 400 mg PO DIRECTED PRN (Reason: PAIN/FEVER) RF: 0 levothyroxine 200 mcg tablet 200 mcg PO DAILY RF: 0 insulin lispro 100 unit/mL solution 0 unit continuous subcutaneous infusion CONTINOUS MDD 130 UNITS/24 HOURS RF: 0 metformin 500 mg tablet extended release 24 hr 1,000 mg PO BID RF: 0 hydroxyzine pamoate [Vistaril] 25 mg capsule 25 - 50 mg PO HS PRN (Reason: Sleep) RF: 0 duloxetine 60 mg capsule,delayed release(DR/EC) 60 mg PO BID RF: 0 aripiprazole 2 mg tablet 2 mg PO DAILY RF: 0 Discharge Orders: Discharge Order (Routine); Ordered 10/17/21 Ordered By: Anila Santos/Other Patient Handouts: Gastroparesis, Managing Type 2 Diabetes Admission Data Admit Date/Time: 10/16/21 02:44 Attending Provider: Ulisses Noriega Admit Provider: Margie Mackenzie Primary Care Provider: Nathen Stewart Other Providers: Margie Mackenzie Coding Level of Care Code 06002 OBS Care - Discharge Diagnoses Nausea & vomiting R11.2 Vomiting type: unspecified CASTILLO (nonalcoholic steatohepatitis) K75.81 Adrenal nodule E27.8 Lymphadenopathy R59.1 History of DVT (deep vein thrombosis) Z86.718 Diabetes mellitus with hyperglycemia E11.65 Thrombocytopenia D69.6
--- NOTE | 2021-10-16 15:17 | Pharmacy Report ---
Pharmacy Glycemic Short Note 2 - Date of Service October 16, 2021 - Glycemic Short BSG Results (Last 24 hours): 10/15/21 10/16/21 10/16/21 23:29 08:17 12:03 Glucose 313 H* POC Glucose 250 H 247 H OUTPATIENT ANTIDIABETIC REGIMEN: * Humalog insulin pump: MDD 130 units * Metformin ER 1000 mg BID ASSESSMENT: * 41 y/o F admitted for intractable nausea. Patient with history of Type 2 diabetes managed at home on Humalog pump and Metformin. * Nurse called to say this morning that patient did not have her own insulin pump with her. * Therefore transitioned patient to basal and bolus insulin regimens. * Fasting BSG today was 250 mg/dl. * Based on patient's home insulin pump MDD of 130 units, basal insulin 30 units ordered this AM. PM Lantus dose scale (20-40 units) ordered based on BSG. * Novolog parameters based on wt and stress of 2. PLAN FOR INPATIENT GLYCEMIC CONTROL: * Hold outpatient oral diabetes medications * Basal insulin * Lantus 30 units SQ QAM; 20-40 units scale based on BSG at HS * Bolus insulin * NovoLog per scale ACHS or Q6hrs while NPO * Goal Range: Low 110 mg/dL - High 140 mg/dL * Correction Factor: 15 mg/dL/unit * Nutritional / Prandial insulin per carb ratio of 1 unit per 5 grams CHO consumed
[2021-10-16] MEDS ORDERED: PROCHLORPERAZINE 10 MG in SYRINGE 8 ML IV ONE (15:18)
--- NOTE | 2021-10-16 15:28 | Hospitalist Progress Note ---
Date of Service October 16, 2021 Assessment & Plan (1) Nausea & vomiting: Plan: 41yo female presenting wtih 2 days of persistent nausea, vomiting, po intolerance. Patient unable to tolerate PO, unable to take pills. Ddx to include gastroparesis, cannabis hyperemesis, gastroenteritis, GERD -Placed in observation to med/surg -Pepcid TID ordered in addition to Reglan qAC and qHS -Small sips as tolerated - clear liquids (diabetic) -Would advance back to regular diabetic diet as tolerated -This morning, pt vomited prior to PO Reglan and it was requested to be changed to IV which was done -Was able to tolerate clear liquids for lunch -Highly suspicious that her symptoms are related to Cannibis, recommend that she stops using it -Shortly after lunch, she began feeling having n/v again -She is now requesting something for the nausea, dose of Compazine 10mg IVx1 ordered (2) Diabetes mellitus with hyperglycemia: Plan: -Pt apparently uses an insulin pump at home but doesn't have it today -pharmacy has been consulted for glycemic management, appreciate assistance -she claims to be a type 2 diabetic diagnosed 10-15 years ago -No a1c available for review, one ordered tomorrow morning (3) CASTILLO (nonalcoholic steatohepatitis): Plan: Compensated (4) Adrenal nodule: Plan: Adrenal incidentaloma. Unilateral, 1.8cm. Obesity and DM. Benign in appearance -Repeat imaging in 1 year to demonstrate stability (5) Lymphadenopathy: Plan: Noted on imaging, mild, does not appear pathological -Consider repeat imaging as outpatient (6) History of DVT (deep vein thrombosis): Plan: Noted. Plan: Reglan changed to IV, make it AC and HS to be given 30 minutes before meals Continue clear liquids this evening Advance diet in AM and plan for d/c Repeat labs in AM Above plan of care d/w Dr. Cortes Admission and Anticipated Discharge Date Admission Date: October 16, 2021 Subjective Pt seen on rounds this morning. She is was hospitalized this morning with intractable n/v. Pt does use Cannibis and is also being worked up for gastroparesis. She currently is comfortable and hasn't had vomiting since earlier this morning. She was medicated afterwards with a dose of Reglan. She denies cp, dyspnea, f/c, headache, or gu symptoms. Notified this AM by RN that pt did not have insulin pump with her. Review of Systems Review of Systems: CONSTITUTIONAL: Denies weight loss/gain, fever and chills, fatigue, malaise, generalized weakness. HEENT: Denies changes in vision and hearing. RESPIRATORY: Denies SOB, cough, wheezing. CV: Denies palpitations, CP, lower extremity edema, orthopnea, PND. GI: +n/v. Denies abdominal pain and diarrhea. : Denies dysuria and urinary frequency, urgency, hesitancy. MUSCULOSKELETAL: Denies myalgia and joint pain. SKIN: Denies rash and pruritus. NEUROLOGICAL: Denies headache, syncope, focal weakness, numbness, tingling. PSYCHIATRIC: Denies recent changes in mood. +anxiety/depression Physical Exam Physical Exam: GENERAL: 41 yo morbidly obese WF. Pleasant, cooperative, NAD. LUNGS: Clear to auscultation bilaterally. No accessory muscle use. No W/R/R. CARDIOVASCULAR: Regular rate and rhythm. No M/G/R. No JVD. ABDOMEN: Soft, non-tender and non-distended. BS normal x 4 quad. EXTREMITIES: No edema. Non-tender. Peripheral pulses +2/4. NEUROLOGIC: A&O x3. PSYCHIATRIC: Cooperative. Appropriate mood and affect. SKIN: Warm, dry, intact. No rashes or lesions. Results & Data Results & Data ([facility]) Vital Signs (Past 12 Hours) Vital Signs Temp Pulse Resp BP Pulse Ox 10/16/21 07:31 36.8 C 80 16 148/73 H 97 10/16/21 04:15 36.9 C 79 18 155/72 H 97 Laboratory Results 10/15/21 23:29 10/16/21 01:08 PG Care Time/CCT Total # of Minutes Spent Total Time Spent with Patient: Total time spent is greater than 50% in coordination of care (as documented) at patient's floor/unit and/or counseling patient: Coding Level of Care Code None Diagnoses Nausea & vomiting R11.2 Vomiting type: unspecified Diabetes mellitus with hyperglycemia E11.65 CASTILLO (nonalcoholic steatohepatitis) K75.81 Adrenal nodule E27.8 Lymphadenopathy R59.1 History of DVT (deep vein thrombosis) Z86.718 (1) Nausea & vomiting Vomiting type: unspecified Qualified Code(s): R11.2 - Nausea with vomiting, unspecified
[2021-10-16] MEDS ORDERED: METOCLOPRAMIDE HCL INJ 5 MG/ML 2 ML VIAL IV PRN (15:48)
[2021-10-16] MEDS ORDERED: INSULIN GLARGINE SOLOSTAR 100 UNITS/ML 3 ML PEN SC SCH (21:00)
[2021-10-16 21:15] VITALS: O2SAT 98
[2021-10-16] MEDS: PROCHLORPERAZINE 10 MG in SYRINGE 8 ML IV PRN (22:35)
[2021-10-17] MEDS: PROCHLORPERAZINE 10 MG in SYRINGE 8 ML IV PRN (05:33)
[2021-10-17 06:30] LABS: Hematocrit (blood only) 45.2 % (37-47); Mean Corpuscular Hemoglobin 29.3 pg (25-34); Mean Corpuscular Hgb Conc 33.2 g/dL (32-36); Mean Corpuscular Volume 88.3 fL (80-100); RDW Coefficient of Variation 15.1 % (11.5-14.5); RDW Standard Deviation 48.8 fL (36.4-46.3); Red Blood Count 5.12 M/uL (4.2-5.4); White Blood Count 9.46 K/uL (4.8-10.8)
[2021-10-17 06:46] LABS: Albumin Level 3.9 gm/dl (3.4-5.0); BUN Creatinine Ratio 25.4 (10-20); Bilirubin Direct 0.1 mg/dl (0-0.2); Bilirubin,Total 0.8 mg/dl (0.2-1.0); Calcium 8.9 mg/dl (8.5-10.1); Creatinine Clr Calc Pharmacy 195.5 ml/min; Est GFR (Non-African American) 112.2 ml/min; Potassium 4.2 mmol/L (3.5-5.1); Total Protein 7.2 gm/dl (6.0-8.3)
[2021-10-17 06:56] LABS: Basophils # (auto) 0.01 K/uL (0-0.2); Basophils % (auto) 0.1 %; Eosinophils # (auto) 0.08 K/uL (0-0.5); Eosinophils % (auto) 0.8 %; Immature Granulocytes # (auto) 0.03 K/uL (0.00-0.02); Immature Granulocytes % (auto) 0.3 %; Lymphocytes # (auto) 2.37 K/uL (1.2-3.4); Lymphocytes % (auto) 25.1 %; Mean Platelet Volume 10.7 fL (7.4-10.4); Monocytes # (auto) 0.84 K/uL (0.11-0.59); Monocytes % (auto) 8.9 %; Neutrophils # (auto) 6.13 K/uL (1.4-6.5); Neutrophils % (auto) 64.8 %; Platelet Count 90 K/uL (130-400); Platelet Estimate Decreased (Normal); Polychromasia 1+
[2021-10-17 07:32] LABS: Estimated Average Glucose 194 mg/dl; Hemoglobin A1C 8.4 % (4.5-5.6)
[2021-10-17] MEDS ORDERED: METOCLOPRAMIDE HCL INJ 5 MG/ML 2 ML VIAL IV ONE (07:57)
[2021-10-17] MEDS: FAMOTIDINE 20 MG in SYRINGE 3 ML IV SCH (08:01)
[2021-10-17 08:12] VITALS: BP 173/88; PULSE 58; TEMP 97.7
[2021-10-17] MEDS ORDERED: INSULIN GLARGINE SOLOSTAR 100 UNITS/ML 3 ML PEN SC ONE (09:00)
[2021-10-17] MEDS: INSULIN ASPART PER UNIT SC SCH (09:17)
[2021-10-17] MEDS: LEVOTHYROXINE SODIUM 200 MCG TABLET PO SCH (09:50)
[2021-10-17] MEDS: ARIPIprazole 1 MG/ML ORAL SOLN 150 ML BTL PO SCH (09:50)
[2021-10-17] MEDS: DULoxetine HCL 60 MG CAP PO SCH (09:50)
[2021-10-17] MEDS: LEVOTHYROXINE SODIUM 175 MCG TABLET PO SCH (09:50)
[2021-10-17] MEDS ORDERED: INSULIN ASPART PER UNIT SC ONE (11:30)
[2021-10-17] MEDS ORDERED: INSULIN ASPART PER UNIT SC SCH (11:30)
== END 2021-10-17 12:43 | disposition home or self-care (01) ==
LOC: 3E 22:26 → ED 22:26 → SUATTDRO 10-16 02:44 → 3E 10-16 04:13